=== PATIENT | male | born 1960 | race Caucasian/White ===

== ENCOUNTER 2017-08-17 11:22 | Inpatient (IN) | payer BC ==
[~2017-08-17] VITALS: Ht 172.7 cm; Wt 91.3 kg
[~2017-08-17 11:22] MED LIST: ALLEGRA60 M1 PO; FLEXERIL5 MG PO; TRAMADOL HCL50 MG PO
[2017-08-17 11:24] VITALS: BP 128/83
[2017-08-17 11:58] VITALS: BP 132/90
[2017-08-17 12:12] LABS: BASO % 0.3 % (0.0-1.0); EOS # 0.1 10*3/uL (0.0-0.4); EOS % 2.3 % (1.0-4.0); HEMATOCRIT 43.8 % (42.0-52.0); HEMOGLOBIN 14.6 g/dl (14.0-18.0); LYMPH # 1.4 10*3/uL (1.3-4.4); LYMPH % 24.3 % (27.0-41.0); MEAN CELL VOLUME 91.8 fl (80.0-94.0); MEAN CORPUSCULAR HGB 30.6 pg (27.0-31.0); MEAN CORPUSCULAR HGB CONC 33.3 g/dl (33.0-37.0); MONO # 0.5 10*3/uL (0.1-1.0); NEUT # 3.7 10*3/uL (2.3-7.9); NEUT % 63.9 % (47.0-73.0); PLATELET COUNT AUTOMATED 199 10*3/uL (130-400); RED BLOOD COUNT 4.77 10*6/uL (4.50-5.90); RED CELL DISTRI WIDTH 12.7 % (0-14.5); WHITE BLOOD COUNT 5.8 10*3/uL (4.8-10.8)
[2017-08-17 12:21] LABS: ACT PARTIAL THROMBO TIME 23.8 SECONDS (20.8-31.5)
[2017-08-17 12:29] LABS: ALKALINE PHOSPHATASE 54 U/L (45-117); BUN 18 mg/dl (7-24); CHLORIDE 102 mmol/L (98-107); CREATININE 1.09 mg/dL (0.70-1.30); SGOT/AST 26 IU/L (3-35); SGPT/ALT 29 U/L (12-78); SODIUM 136 mmol/L (136-145); TOTAL PROTEIN 7.5 gm/dL (6.4-8.2)
[2017-08-17 12:31] LABS: TROPONIN I < 0.015 ng/ml (<0.045)
[2017-08-17 13:14] VITALS: BP 98/69
[2017-08-17 13:25] VITALS: BP 110/68
[2017-08-17 16:00] VITALS: BP 98/70
[2017-08-17 20:00] VITALS: BP 104/67
[2017-08-18] VITALS: BP 110/75
[2017-08-18 07:40] LABS: BASO % 0.5 % (0.0-1.0); EOS # 0.2 10*3/uL (0.0-0.4); EOS % 2.9 % (1.0-4.0); HEMATOCRIT 44.2 % (42.0-52.0); HEMOGLOBIN 14.5 g/dl (14.0-18.0); LYMPH # 1.5 10*3/uL (1.3-4.4); LYMPH % 23.7 % (27.0-41.0); MEAN CELL VOLUME 91.9 fl (80.0-94.0); MEAN CORPUSCULAR HGB 30.1 pg (27.0-31.0); MEAN CORPUSCULAR HGB CONC 32.8 g/dl (33.0-37.0); MEAN PLATELET VOLUME 10.8 fl (9.6-12.3); MONO # 0.6 10*3/uL (0.1-1.0); MONO % 9.2 % (3.0-9.0); NEUT % 63.5 % (47.0-73.0); PLATELET COUNT AUTOMATED 188 10*3/uL (130-400); RED BLOOD COUNT 4.81 10*6/uL (4.50-5.90); RED CELL DISTRI WIDTH 12.8 % (0-14.5); WHITE BLOOD COUNT 6.2 10*3/uL (4.8-10.8)
[2017-08-18 07:51] LABS: ACT PARTIAL THROMBO TIME 23.3 SECONDS (20.8-31.5)
[2017-08-18 08:00] VITALS: BP 112/62
[2017-08-18 08:25] LABS: ALBUMIN 3.5 gm/dl (3.1-4.5); BUN 16 mg/dl (7-24); CHLORIDE 104 mmol/L (98-107); POTASSIUM 4.2 mmol/L (3.5-5.1); SGOT/AST 20 IU/L (3-35); SGPT/ALT 26 U/L (12-78); SODIUM 140 mmol/L (136-145)
[2017-08-18 08:33] LABS: ALKALINE PHOSPHATASE 51 U/L (45-117); CHOLESTEROL 215 mg/dL (<200); CREATININE 1.14 mg/dL (0.70-1.30); HDL CHOLESTEROL 50 mg/dl (40-60); LDL CHOLESTEROL 129 mg/dL (9-159); PHOSPHOROUS 2.7 mg/dL (2.5-4.9); THYROID STIM HORMONE (HS) 0.915 uIU/ml (0.358-4.75); TOTAL PROTEIN 6.9 gm/dL (6.4-8.2); TRIGLYCERIDES 180 mg/dl (<150); VLDL CHOLESTEROL 36 mg/dL (6-40)
[2017-08-18 09:01] LABS: VITAMIN D, 25-HYDROXY 25.9 ng/mL (30-100)
[2017-08-18] MEDS ORDERED: VITAMIN D-32000 UNI1 PO (11:36)
== END 2017-08-18 12:16 | disposition home or self-care (01) | DRG 193 ==
LOC: ED 11:22 → EDHOLD 12:49 → 4E 13:16
PROVIDERS: Internal Medicine; Nurse Practitioner Family
DX: R09.1 Pleurisy (principal); I21.9 Acute myocardial infarction, unspecified; R07.89 Other chest pain; F41.9 Anxiety disorder, unspecified; E83.41 Hypermagnesemia; D72.810 Lymphocytopenia; E66.9 Obesity, unspecified; K21.9 Gastro-esophageal reflux disease without esophagitis; R03.0 Elevated blood-pressure reading, without diagnosis of hypertension; M16.11 Unilateral primary osteoarthritis, right hip; R00.1 Bradycardia, unspecified; Z79.899 Other long term (current) drug therapy; Z82.49 Family history of ischemic heart disease and other diseases of the circulatory system; Z90.49 Acquired absence of other specified parts of digestive tract; Z80.8 Family history of malignant neoplasm of other organs or systems; Z68.30 Body mass index [BMI] 30.0-30.9, adult

== ENCOUNTER → 2020-02-29 | Outpatient (CLI) | payer BC ==
[~2020-02-29] MED LIST changes: +VITAMIN D-32000 UNI1 PO
== END | disposition home or self-care (01) ==
LOC: COVID19 12:58
PROVIDERS: ATTEND Family Medicine
DX: U07.1 COVID-19 (principal)

== ENCOUNTER → 2020-10-03 | Outpatient (CLI) | payer BC | END | disposition home or self-care (01) | LOC: US 16:00 | PROVIDERS: ATTEND Orthopaedic Surgery | DX: I82.401 Acute embolism and thrombosis of unspecified deep veins of right lower extremity (principal); Z96.649 Presence of unspecified artificial hip joint ==

== ENCOUNTER → 2021-05-15 | Outpatient (CLI) | payer BC | LOC: COVID19 15:00 | PROVIDERS: ATTEND Internal Medicine | DX: U07.1 COVID-19 (principal) ==